=== PATIENT | female | born 1985 | race Caucasian/White ===

== ENCOUNTER 2016-03-15 00:45 | Emergency (ER) | payer OTHER ==
[2016-01-05 22:29] VITALS: BP 110/66
[~2016-03-15 00:45] MED LIST: CYCL10TA2 PO; HYDR-971 PO; SULF1TAB24 PO
[2016-03-15] MEDS ORDERED: D-ME118S2 PO (15:13)
[2016-03-15] MEDS ORDERED: PROAIR HFA8.5 GM INH (15:13)
[2016-03-15] MEDS ORDERED: AZIT250T PO (15:13)
== END 2016-03-15 00:50 | disposition left against medical advice (07) ==
LOC: ER 00:45
DX: R05 Cough (principal); M54.89 Other dorsalgia

== ENCOUNTER 2016-03-15 14:02 | Emergency (ER) | payer OTHER ==
[~2016-03-15] VITALS: Ht 157.5 cm; Wt 99.8 kg
[2016-03-15 14:45] VITALS: BP 113/73
[2016-03-15] MEDS ORDERED: AZIT250T PO (15:13)
[2016-03-15] MEDS ORDERED: D-ME118S2 PO (15:13)
[2016-03-15] MEDS ORDERED: PROAIR HFA8.5 GM INH (15:13)
--- NOTE | 2016-03-15 15:13 | PHYS DOC ---
Past Medical History Past Medical History: Asthma Past Surgical History: Alcohol Use: Occasionally Drug Use: None Adult General Chief Complaint Chief Complaint: COUGH HPI HPI Patient is a 30 year old female presents emergency room with complaint of nonproductive, harsh, hacking cough for approximately one and half weeks. Patient has seen her primary care doctor within the past week and was prescribed steroids. She states that steroids "had some effect" but did not resolve completely. Patient is a smoker. She denies antibiotic use, foreign travel or hospitalization within the last 90 days. Review of Systems Review of Systems Constitutional: Denies fever or chills [] Eyes: Denies change in visual acuity, redness, or eye pain [] HENT: Denies nasal congestion or sore throat [] Respiratory: Reports dry, hacking cough. Denies shortness of breath. Denies post tussive emesis. Cardiovascular: No additional information not addressed in HPI [] GI: Denies abdominal pain, nausea, vomiting, bloody stools or diarrhea [] : Denies dysuria or hematuria [] Musculoskeletal: Denies back pain or joint pain [] Integument: Denies rash or skin lesions [] Neurologic: Denies headache, focal weakness or sensory changes [] Endocrine: Denies polyuria or polydipsia [] Allergies Allergies Allergies Coded Allergies Type Severity Reaction Last Updated Verified No Known Drug Allergies 08/24/13 No Physical Exam Physical Exam Constitutional: Well developed, well nourished, no acute distress, non-toxic appearance. [] HENT: Normocephalic, atraumatic, bilateral external ears normal, oropharynx moist, no oral exudates, nose normal. [] Eyes: PERRLA, EOMI, conjunctiva normal, no discharge. [] Neck: Normal range of motion, no tenderness, supple, no stridor. [] Cardiovascular:Heart rate regular rhythm, no murmur [] Lungs & Thorax: There is no evidence respiratory distress respiratory fatigue. Patient has mild central coarse wheezing the resonates bilaterally. Peripheral lung sounds are clear. Abdomen: Bowel sounds normal, soft, no tenderness, no masses, no pulsatile masses. [] Skin: Warm, dry, no erythema, no rash. [] Back: No tenderness, no CVA tenderness. [] Extremities: No tenderness, no cyanosis, no clubbing, ROM intact, no edema. [] Neurologic: Alert and oriented X 3, normal motor function, normal sensory function, no focal deficits noted. [] Psychologic: Affect normal, judgement normal, mood normal. [] Current Patient Data Vital Signs Vital Signs Date Time Temp Pulse Resp B/P Pulse Ox O2 Delivery O2 Flow Rate FiO2 03/15/16 14:45 97.7 76 18 97 Room Air 97.7 EKG EKG [] Radiology/Procedures Radiology/Procedures [] Course & Med Decision Making Course & Med Decision Making Pertinent Labs and Imaging studies reviewed. (See chart for details) [] Dragon Disclaimer Dragon Disclaimer This electronic medical record was generated, in whole or in part, using a voice recognition dictation system. Departure Departure Impression: Primary Impression: Bronchitis Disposition: HOME, SELF-CARE Condition: GOOD Referrals: UNKNOWN PCP NAME (PCP) Patient Instructions: Acute Bronchitis, [id number], Smoking Cessation, Tips For Success, Smoking, You Can Quit, [id number] Additional Instructions: 1. Take the medication as prescribed. 2. Review discharge instructions; especially for reasons to return to the emergency department. 3. Call your primary care doctor's office in the morning to schedule follow-up appointment. Scripts D-Methorphan Hb/Prometh Hcl (Promethazine-Dm Syrup)118 Ml Syrup5 Ml PO PRN Q6HRS COUGH #120 ML Prov:ANGELY HARTMAN 03/15/16 Albuterol Sulfate (Proair Hfa Inhaler)8.5 Gm Hfa.aer.ad1 Puff INH PRN Q6HRS PRN SHORTNESS OF BREATH #1 INHALER Ref 0 Prov:ANGELY HARTMAN 03/15/16 Azithromycin (Zithromax)250 Mg Tablet1 Pkg PO UD #6 TAB Prov:ANGELY HARTMAN 03/15/16 ANGELY HARTMAN Mar 15, 2016 15:13
== END 2016-03-15 15:20 | disposition home or self-care (01) ==
LOC: ER 14:02
DX: J40 Bronchitis, not specified as acute or chronic (principal); J45.909 Unspecified asthma, uncomplicated; F17.200 Nicotine dependence, unspecified, uncomplicated
CPT/HCPCS: 99283

== ENCOUNTER 2016-07-03 23:26 | Inpatient (IN) | payer OTHER ==
[~2016-07-03] VITALS: Ht 157.5 cm; Wt 101.2 kg
[~2016-07-03 23:26] MED LIST changes: +AZIT250T PO; +D-ME118S2 PO; +PROAIR HFA8.5 GM INH
[2016-07-04] VITALS (9 sets, daily range): BP systolic 94–124; BP diastolic 48–80
--- NOTE | 2016-07-04 00:12 | PHYS DOC ---
Past Medical History Past Medical History: Asthma Past Surgical History: Alcohol Use: Occasionally Drug Use: None Adult General Chief Complaint Chief Complaint: ABDOMINAL PAIN HPI HPI Patient is a 30 year old female who presents with complaint of abdominal pain. Patient states that her symptoms started yesterday in which she was seen here last night. Patient states she has slept all day and has progressively increase. Patient states that her pain is in her upper abdomen. Patient states she has radiation of pain into her back. Patient denies vomiting today states she vomited here in the emergency department yesterday. Patient denies any fever or diarrhea. Patient has not had history of similar symptoms. The patient states that she does have history of heartburn. Patient states her pain is severe. Review of Systems Review of Systems Constitutional: Denies fever or chills [] Eyes: Denies change in visual acuity, redness, or eye pain [] HENT: Denies nasal congestion or sore throat [] Respiratory: Denies cough or shortness of breath [] Cardiovascular: No additional information not addressed in HPI [] GI: abdominal pain, denies nausea, vomiting, bloody stools or diarrhea [] : Denies dysuria or hematuria [] Musculoskeletal: Denies back pain or joint pain [] Integument: Denies rash or skin lesions [] Neurologic: Denies headache, focal weakness or sensory changes [] Current Medications Current Medications Current Medications Medications (Trade) Dose Ordered Sig/Kam Start Time Stop Time Status Last Admin Dose Admin Multi-Ingredient Mouthwash/Gargle (Gi Cocktail Single Dose) 15 ml 1X ONCE 07/04/16 01:00 07/04/16 01:01 Allergies Allergies Allergies Coded Allergies Type Severity Reaction Last Updated Verified No Known Drug Allergies 08/24/13 No Physical Exam Physical Exam Constitutional: Well developed, well nourished, no acute distress, non-toxic appearance. [] HENT: Normocephalic, atraumatic, bilateral external ears normal, oropharynx moist, no oral exudates, nose normal. [] Eyes: PERRLA, EOMI, conjunctiva normal, no discharge. [] Neck: Normal range of motion, no tenderness, supple, no stridor. [] Cardiovascular:Heart rate regular rhythm, no murmur [] Lungs & Thorax: Bilateral breath sounds clear to auscultation [] Abdomen: Bowel sounds hypoactive, soft, no tenderness, no masses, no pulsatile masses. [] Skin: Warm, dry, no erythema, no rash. [] Back: No tenderness, right CVA tenderness. [] Extremities: No tenderness, no cyanosis, no clubbing, ROM intact, no edema. [] Neurologic: Alert and oriented X 3, normal motor function, normal sensory function, no focal deficits noted. [] Psychologic: Affect normal, judgement normal, mood normal. [] Current Patient Data Vital Signs Vital Signs Date Time Temp Pulse Resp B/P Pulse Ox O2 Delivery O2 Flow Rate FiO2 07/03/16 23:31 97.9 66 18 123/84 99 Room Air 97.9 Lab Values Laboratory Tests Test 07/04/16 00:01 Urine Collection Type Unknown Urine Color Yellow Urine Clarity Clear Urine pH 7.0 Urine Specific [place] 1.025 Urine Protein Negativemg/dL (NEG-TRACE) Urine Glucose (UA) Negativemg/dL (NEG) Urine Ketones (Stick) Negativemg/dL (NEG) Urine Blood Negative (NEG) Urine Nitrite Negative (NEG) Urine Bilirubin Negative (NEG) Urine Urobilinogen Dipstick 0.2mg/dL (0.2 mg/dL) Urine Leukocyte Esterase Negative (NEG) Urine RBC 0/HPF (0-2) Urine WBC 0/HPF (0-4) Urine Squamous Epithelial Cells Few/LPF Urine Amorphous Sediment Present/HPF Urine Bacteria 0/HPF (0-FEW) Urine Mucus Mod/LPF Urine Test Negative (NEG) EKG EKG [] Radiology/Procedures Radiology/Procedures [[facility] [address] [place] [address] IMAGING REPORT Signed PATIENT: NAVIN ANTON ACCOUNT: [id number] : 1985 LOCATION: ER AGE: 30 SEX: F EXAM STATUS: REG ER ORD. PHYSICIAN: JAILYN PARRA APRN REASON: upper abdominal pain with radiation of pain to the back PROCEDURE: CT ABDOMEN PELVIS WO CONTRAST PROCEDURE CT abdomen and pelvis without contrast 07/04/2016. HISTORY Upper abdominal pain radiating to the back since yesterday. TECHNIQUE Noncontrast images were performed. Sagittal and coronal reconstructions were obtained. Exposure: One or more of the following individualized dose reduction techniques were utilized for this exam: 1. Automated exposure control. 2. Adjustment of the mA and/or kV according to patient size. 3. Use of iterative reconstruction technique. COMPARISON FINDINGS The lung bases are clear. The liver and spleen are homogeneous in density and normal in configuration. Evaluation of the solid organs is limited without intravenous contrast. Calcifications are visible in the gallbladder. There is no obvious gallbladder wall thickening or surrounding inflammation. The kidneys have no apparent mass, calcification or obstruction. The adrenal glands are not enlarged. No pancreatic abnormality is seen. There is no apparent adenopathy. No soft tissue mass or other inflammatory process is evident. A normal appendix is shown inferior to the cecum. Images through the pelvis show no apparent distal ureteral stone or obstruction. The bladder was not well distended, but appears normal. No pelvic or inguinal adenopathy is seen. The uterus and adnexal areas appear normal for age. There is no separate pelvic mass or inflammatory process. IMPRESSION Cholelithiasis. No other abnormality is seen. Electronically signed by: Javier Alonzo (Jul 04, 2016 00:45:50) DICTATED and SIGNED BY: JAVIER ALONZO Jr, MD DATE: 07/04/16 0045 CC: JAILYN PARRA APRN; CHASE ARROYO MD ~ ] Course & Med Decision Making Course & Med Decision Making Pertinent Labs and Imaging studies reviewed. (See chart for details) CT scan shows cholelithiasis. Patient continues to have abdominal pain. We'll talk with the hospitalist regards to admission. Labs pending at this time. [address] Slaughter in regard to admission. Order completed. [] Dragon Disclaimer Dragon Disclaimer This electronic medical record was generated, in whole or in part, using a voice recognition dictation system. Departure Departure Impression: Primary Impression: Cholelithiasis Disposition: ADMITTED INPATIENT Admitting Physician: Kayla Slaughter Condition: STABLE Referrals: CHASE ARROYO MD (PCP) JAILYN PARRA APRN Jul 04, 2016 00:12
[2016-07-04 00:22] LABS: NEG OBC UR NEG; POS OBC UR POS
[2016-07-04 00:28] LABS: BACTERIA,URINE 0 /HPF (0-FEW); BILIRUBIN,URINE NEGATIVE (NEG); GLUCOSE,URINE NEGATIVE (NEG); NITRITE,URINE NEGATIVE (NEG); PROTEIN,URINE NEGATIVE (NEG-TRACE); RBC,URINE 0 /HPF (0-2); UROBILINOGEN,URINE 0.2 mg/dL (0.2 mg/dL); WBC,URINE 0 /HPF (0-4)
[2016-07-04 00:29] LABS: SQUAMOUS EPITHELIAL CELL,UR FEW /LPF
--- NOTE | 2016-07-04 00:47 | RAD ---
PROCEDURE CT abdomen and pelvis without contrast 07/04/2016. HISTORY Upper abdominal pain radiating to the back since yesterday. TECHNIQUE Noncontrast images were performed. Sagittal and coronal reconstructions were obtained. Exposure: One or more of the following individualized dose reduction techniques were utilized for this exam: 1. Automated exposure control. 2. Adjustment of the mA and/or kV according to patient size. 3. Use of iterative reconstruction technique. COMPARISON FINDINGS The lung bases are clear. The liver and spleen are homogeneous in density and normal in configuration. Evaluation of the solid organs is limited without intravenous contrast. Calcifications are visible in the gallbladder. There is no obvious gallbladder wall thickening or surrounding inflammation. The kidneys have no apparent mass, calcification or obstruction. The adrenal glands are not enlarged. No pancreatic abnormality is seen. There is no apparent adenopathy. No soft tissue mass or other inflammatory process is evident. A normal appendix is shown inferior to the cecum. Images through the pelvis show no apparent distal ureteral stone or obstruction. The bladder was not well distended, but appears normal. No pelvic or inguinal adenopathy is seen. The uterus and adnexal areas appear normal for age. There is no separate pelvic mass or inflammatory process. IMPRESSION Cholelithiasis. No other abnormality is seen. Electronically signed by: Ricky Alonzo (Jul 04, 2016 00:45:50)
[2016-07-04] MEDS ORDERED: LIDO:MAALOX:DONNATAL 1:1:1 15 ML SINGLE DOSE SWSW ONE (01:00)
[2016-07-04] MEDS ORDERED: ONDANSETRON PF 4 MG/2 ML VIAL. IV PRN ×2 (01:00→10:15)
[2016-07-04] MEDS ORDERED: PANTOPRAZOLE IV PUSH 40 MG VIAL. IVP ONE (01:15)
[2016-07-04 01:23] LABS: BASO # 0.2 x10^3/uL (0.0-0.2); BASO % 1 % (0-3); EOS % 4 % (0-3); HEMATOCRIT 39.6 % (36.0-47.0); HEMOGLOBIN 13.3 g/dL (12.0-15.5); LYMPH # 3.4 x10^3/uL (1.0-4.8); LYMPH % 26 % (24-48); MEAN CORPUSCULAR HEMOGLOBIN 32 pg (25-35); MEAN CORPUSCULAR HGB CONC 34 g/dL (31-37); MEAN CORPUSCULAR VOLUME 96 fL (79-100); MONO % 6 % (0-9); NEUT % 63 % (31-73); PLATELET COUNT 326 x10^3/uL (140-400); RED BLOOD COUNT 4.14 x10^6/uL (3.50-5.40); RED CELL DISTRIBUTION WIDTH 13.8 % (11.5-14.5); WHITE BLOOD COUNT 13.2 x10^3/uL (4.0-11.0)
[2016-07-04 01:38] LABS: ALBUMIN 3.6 g/dL (3.4-5.0); CALCIUM 9.1 mg/dL (8.5-10.1); TOTAL PROTEIN 7.3 g/dL (6.4-8.2)
[2016-07-04 01:39] LABS: CREATININE 0.9 mg/dL (0.6-1.0); GFR 74.6; POTASSIUM 4.2 mmol/L (3.5-5.1); TOTAL BILIRUBIN 0.3 mg/dL (0.2-1.0)
[2016-07-04] MEDS: FENTANYL PF 100 MCG/2 ML VIAL. IV PRN ×6 (01:40→23:55)
[2016-07-04] MEDS: IV NORMAL SALINE 1000ML BAG 1,000 ML IV SCH ×3 (01:40→18:17)
[2016-07-04] MEDS ORDERED: TRAM50TA PO (03:58)
--- NOTE | 2016-07-04 09:14 | ACF ---
Admit Criteria Forms Admit Criteria Forms Admit Criteria Forms GALLBLADDER OR BILE DUCT INFLAMMATION OR STONE Clinical Indications for Admission to Inpatient Care ( Place 'X' for any and all applicable criteria): Admission is indicated for patients with ANY ONE of the following(1)(2)(3)(4)(5) : [ ]I. Acute cholecystitis as indicated by ALL of the following: [ ]a) Right upper quadrant pain, mass, or tenderness [ ]b) Systemic signs of inflammation indicated by ANY ONE of the following: [ ]i) Fever [ ]ii) C-reactive protein level greater than 10 mg/L (95 nmol/L) [ ]iii) White blood cell count greater than 10,000/mm3 (10 x109/L) or less than 4000/mm3 (4 x109/L) [X]II. Inpatient admission required rather than observation care (Also use Gallbladder or Bile Duct Inflammation or Stone: Observation Care as appropriate) because of ANY ONE of the following: [ ]a) Common bile duct obstruction diagnosed [ ]b) Vomiting that is severe or persistent [X]c) Severe pain requiring acute inpatient management [ ]d) Signs of intestinal obstruction or peritonitis [A] [ ]e) Severe electrolyte abnormalities requiring inpatient care [ ]f) Absent bowel sounds with complete ileus(8) [ ]g) Hemodynamic instability [ ]h) High fever or infection requiring inpatient admission as indicated by ANY ONE of the following (9): [ ]1) Appropriate outpatient or observation care antimicrobial Treatment. unavailable, not effective, or not feasible [ ]2) Temperature greater than 104.9 degrees F (40.5 degrees C) (oral) [ ]3) Temperature greater than 103.1 degrees F (39.5 degrees C) (oral) or less than 96.8 degrees F (36 degrees C) (rectal) that does not respond to all emergency treatment measures [ ]4) Documented bacteremia [ ]i) IV fluid to replace significant ongoing losses (greater than 3 L/m2 per day) [ ]j) Percutaneous or open drainage (eg, abscess, biliary tract) procedures [ ]k) Immediate inpatient surgery [ ]l) Other condition, treatment or monitoring requiring inpatient admission [ ]III. Acute cholangitis as indicated by ALL of the following(9)(10): [ ]a) Systemic signs of inflammation indicated by ANY ONE of the following: [ ]i) Fever [ ]ii) C-reactive protein level greater than 10 mg/L (95 nmol /L) [ ]iii) White blood cell count greater than 10,000/mm3 (10 x109/L) or less than 4000/mm3 (4 x109/L) [ ]b) Evidence of common bile duct disease indicated by ANY ONE of the following: [ ]i) Total serum bilirubin level greater than or equal to 2 mg/dL (34 micromoles/L) [ ]ii) Liver function test (alkaline phosphatase (ALP), r- glutamyltransferase (GGT), aspartate aminotransferase (AST), or alanine aminotransferase (ALT)) greater than 1.5 times the upper limit of normal[B] [ ]iii) Hepatobiliary imaging showing biliary dilatation or evidence of etiology (eg, stricture, stone, previously placed stent) Extended stay beyond goal length of stay may be needed for (1)(2)): [ ]a) Bacteremia or Hemodynamic instability [ ]b) Cholecystectomy [ ]c) Other surgical procedure(24) [ ]d) Percutaneous or endoscopic ultrasound-guided cholecystostomy The original [facility] content created by [facility] has been revised. The portions of the content which have been revised are identified through the use of italic text or in bold, and [facility] has neither reviewed nor approved the modified material. All other unmodified content is copyright [facility] [employer]. Please see references footnoted in the original [facility] [employer] edition 2016 YEMI VALENCIA Jul 04, 2016 09:14
--- NOTE | 2016-07-04 09:41 | PDOC2 ---
DIANE ARIAS FAMILY NURSE PRACTITIONER 07/04/16 0941: CONSULT Date of Consult Date of Consult DATE: 07/04/16 TIME: 09:37 Reason for Consult Reason for Consult: abdominal pain Referring Physician Referring Physician: ER Identification/Chief Complaint Chief Complaint abdominal pain Source Source: Chart review, Patient History of Present Illness Reason for Visit: RUQ pain with radiation to her back for 2 days. She reports it is constant and no aggravating or alleviating factors. Associated nausea and emesis. No constipation or diarrhea. She had similar symptoms earlier in the week, resolved and then returned worse. Past Medical History Pulmonary: Asthma Past Surgical History Past Surgical History: (x2) Family History Family History: Other (noncontributory to current illness) Social History <1 pack per day ALCOHOL: occassional Drugs: None Lives: with Family Current Problem List Problem List Problems Medical Problems: (1) Cholelithiasis Status: Acute Current Medications Current Medications Current Medications Multi-Ingredient Mouthwash/Gargle (Gi Cocktail Single Dose) 15 ml 1X ONCE SWSW ; Start 07/04/16 at 01:00; Stop 07/04/16 at 01:00; Status DC Ondansetron HCl (Zofran) 4 mg PRN Q8HRS PRN IV NAUSEA/VOMITING Last administered on 07/04/16 01:39; Start 07/04/16 at 01:00; Stop 07/05/16 at 00:59 Fentanyl Citrate 50 mcg 50 mcg PRN Q2HR PRN IV SEVERE PAIN Last administered on 07/04/16 01:40; Start 07/04/16 at 01:00; Stop 07/05/16 at 00:59 Sodium Chloride (Iv Sodium Chloride 0.9% 1000ml Bag) 1,000 ml @ 125 mls/hr Q8H IV Last administered on 07/04/16 09:34; Start 07/04/16 at 01:00; Stop at 00:59 Pantoprazole Sodium 40 mg 40 mg 1X ONCE IVP Last administered on 07/04/16 01: 40; Start 07/04/16 at 01:15; Stop 07/04/16 at 01:16; Status DC Cefazolin Sodium/ Dextrose (Ancef 2gm Premix) 50 ml @ 100 mls/hr 1X PREOP PRN IV english as a second language instructor to or; Start 07/04/16 at 09:45; Stop 07/05/16 at 18:00; Status UNV Active Scripts Active Proair Hfa Inhaler (Albuterol Sulfate) 8.5 Gm Hfa.aer.ad 1 Puff INH PRN Q6HRS PRN [place] 5-325 Tablet (Acetaminophen/Hydrocodone Bitart) 1 Each Tablet 1-2 Tab PO Q4-6HRS Reported Tramadol Hcl 50 Mg Tablet 50 Mg PO Q6H PRN Allergies Allergies: Coded Allergies: No Known Drug Allergies (Unverified , 08/24/13) ROS General: YES: Chills, No: Other (fevers) PSYCHOLOGICAL ROS: No: Anxiety, Depression Eyes: No Blurry vision, No Double vision HEENT: No: Heacaches, Sore Throat Hematological and Lymphatic: No: Bleeding Problems, Blood Clots Respiratory: YES: Shortness of breath (due to abdominal pain), No: Cough Cardiovascular: No Chest Pain, No Palpitations Gastrointestinal: Yes Other (see hpi) Genitourinary: No Dysuria, No Hematuria Musculoskeletal: No Joint Pain, No Muscle Pain Neurological: No Confusion, No Numbness/Tingling Skin: No Pruritus, No Rash Physical Exam General: Alert, Oriented X3, Cooperative, No acute distress HEENT: PERRLA, Mucous membr. moist/pink Lungs: Clear to auscultation, Normal air movement Heart: Regular rate, Normal S1, Normal S2, No murmurs Abdomen: Soft, Other (obese abdomen, RUQ TTP, mild epigastric ttp, pelvic scar from csection ) Extremities: No clubbing, No cyanosis Skin: No rashes, No breakdown, Other (noted mulitple tattoos) Neuro: Normal speech, Sensation intact Psych/Mental Status: Mental status NL, Mood NL MUSCULOSKELETAL: No deformity, No swelling Vitals VITALS Vital Signs Date Time Temp Pulse Resp B/P Pulse Ox O2 Delivery O2 Flow Rate FiO2 07/04/16 07:00 98.2 81 20 94/52 98 Room Air 98.2 Labs Labs Laboratory Tests Test 07/04/16 00:01 07/04/16 01:15 Urine Collection Type Unknown Urine Color Yellow Urine Clarity Clear Urine pH 7.0 Urine Specific [place] 1.025 Urine Protein Negativemg/dL (NEG-TRACE) Urine Glucose (UA) Negativemg/dL (NEG) Urine Ketones (Stick) Negativemg/dL (NEG) Urine Blood Negative (NEG) Urine Nitrite Negative (NEG) Urine Bilirubin Negative (NEG) Urine Urobilinogen Dipstick 0.2mg/dL (0.2 mg/dL) Urine Leukocyte Esterase Negative (NEG) Urine RBC 0/HPF (0-2) Urine WBC 0/HPF (0-4) Urine Squamous Epithelial Cells Few/LPF Urine Amorphous Sediment Present/HPF Urine Bacteria 0/HPF (0-FEW) Urine Mucus Mod/LPF Urine Test Negative (NEG) White Blood Count 13.2x10^3/uL (4.0-11.0) Red Blood Count 4.14x10^6/uL (3.50-5.40) Hemoglobin 13.3g/dL (12.0-15.5) Hematocrit 39.6% (36.0-47.0) Mean Corpuscular Volume 96fL (79-100) Mean Corpuscular Hemoglobin 32pg (25-35) Mean Corpuscular Hemoglobin Concent 34g/dL (31-37) Red Cell Distribution Width 13.8% (11.5-14.5) Platelet Count 326x10^3/uL (140-400) Neutrophils (%) (Auto) 63% (31-73) Lymphocytes (%) (Auto) 26% (24-48) Monocytes (%) (Auto) 6% (0-9) Eosinophils (%) (Auto) 4% (0-3) Basophils (%) (Auto) 1% (0-3) Neutrophils # (Auto) 8.2x10^3uL (1.8-7.7) Lymphocytes # (Auto) 3.4x10^3/uL (1.0-4.8) Monocytes # (Auto) 0.8x10^3/uL (0.0-1.1) Eosinophils # (Auto) 0.5x10^3/uL (0.0-0.7) Basophils # (Auto) 0.2x10^3/uL (0.0-0.2) Sodium Level 140mmol/L (136-145) Potassium Level 4.2mmol/L (3.5-5.1) Chloride Level 103mmol/L (98-107) Carbon Dioxide Level 27mmol/L (21-32) Anion Gap 10 (6-14) Blood Urea Nitrogen 14mg/dL (7-20) Creatinine 0.9mg/dL (0.6-1.0) Estimated GFR (Cockcroft-Gault) 74.6 BUN/Creatinine Ratio 16 (6-20) Glucose Level 82mg/dL (70-99) Calcium Level 9.1mg/dL (8.5-10.1) Total Bilirubin 0.3mg/dL (0.2-1.0) Aspartate Amino Transf (AST/SGOT) 23U/L (15-37) Alanine Aminotransferase (ALT/SGPT) 35U/L (14-59) Alkaline Phosphatase 59U/L (46-116) Total Protein 7.3g/dL (6.4-8.2) Albumin 3.6g/dL (3.4-5.0) Albumin/Globulin Ratio 1.0 (1.0-1.7) Laboratory Tests Test 07/04/16 00:01 07/04/16 01:15 Urine Collection Type Unknown Urine Color Yellow Urine Clarity Clear Urine pH 7.0 Urine Specific [place] 1.025 Urine Protein Negativemg/dL (NEG-TRACE) Urine Glucose (UA) Negativemg/dL (NEG) Urine Ketones (Stick) Negativemg/dL (NEG) Urine Blood Negative (NEG) Urine Nitrite Negative (NEG) Urine Bilirubin Negative (NEG) Urine Urobilinogen Dipstick 0.2mg/dL (0.2 mg/dL) Urine Leukocyte Esterase Negative (NEG) Urine RBC 0/HPF (0-2) Urine WBC 0/HPF (0-4) Urine Squamous Epithelial Cells Few/LPF Urine Amorphous Sediment Present/HPF Urine Bacteria 0/HPF (0-FEW) Urine Mucus Mod/LPF Urine Test Negative (NEG) White Blood Count 13.2x10^3/uL (4.0-11.0) Red Blood Count 4.14x10^6/uL (3.50-5.40) Hemoglobin 13.3g/dL (12.0-15.5) Hematocrit 39.6% (36.0-47.0) Mean Corpuscular Volume 96fL (79-100) Mean Corpuscular Hemoglobin 32pg (25-35) Mean Corpuscular Hemoglobin Concent 34g/dL (31-37) Red Cell Distribution Width 13.8% (11.5-14.5) Platelet Count 326x10^3/uL (140-400) Neutrophils (%) (Auto) 63% (31-73) Lymphocytes (%) (Auto) 26% (24-48) Monocytes (%) (Auto) 6% (0-9) Eosinophils (%) (Auto) 4% (0-3) Basophils (%) (Auto) 1% (0-3) Neutrophils # (Auto) 8.2x10^3uL (1.8-7.7) Lymphocytes # (Auto) 3.4x10^3/uL (1.0-4.8) Monocytes # (Auto) 0.8x10^3/uL (0.0-1.1) Eosinophils # (Auto) 0.5x10^3/uL (0.0-0.7) Basophils # (Auto) 0.2x10^3/uL (0.0-0.2) Sodium Level 140mmol/L (136-145) Potassium Level 4.2mmol/L (3.5-5.1) Chloride Level 103mmol/L (98-107) Carbon Dioxide Level 27mmol/L (21-32) Anion Gap 10 (6-14) Blood Urea Nitrogen 14mg/dL (7-20) Creatinine 0.9mg/dL (0.6-1.0) Estimated GFR (Cockcroft-Gault) 74.6 BUN/Creatinine Ratio 16 (6-20) Glucose Level 82mg/dL (70-99) Calcium Level 9.1mg/dL (8.5-10.1) Total Bilirubin 0.3mg/dL (0.2-1.0) Aspartate Amino Transf (AST/SGOT) 23U/L (15-37) Alanine Aminotransferase (ALT/SGPT) 35U/L (14-59) Alkaline Phosphatase 59U/L (46-116) Total Protein 7.3g/dL (6.4-8.2) Albumin 3.6g/dL (3.4-5.0) Albumin/Globulin Ratio 1.0 (1.0-1.7) Assessment/Plan Assessment/Plan symptomatic cholelithiasis, possible cholecystitis leukocytosis normal LFTS plan lap bhupinder today ELIAS FLOREZ MD 07/04/16 1027: CONSULT Allergies Allergies: Coded Allergies: No Known Drug Allergies (Unverified , 08/24/13) Assessment/Plan Assessment/Plan Pt seen and examined by myself; 30 year old female with upper abdominal pain, RUQ with some radiation to LUQ, sharp in nature. Remaining HPI/ROS/SH/PMH as above, reviewed; exam: alert, oriented, no scleral icterus, multiple tattoos, no neck masses, lungs clear, heart RR and R, abdomen obese, with tenderness RUQ , no guarding or peritoneal signs, ext neg for edema or deformity; CT showing gallstones, no other abnormality; labs reviewed; suspect calculous cholecystitis. I reviewed surgical treatment with the patient and the details. The risks were discussed; the discussion was interrupted several times by cell phone calls. She understands and would like to proceed. DIANE ARIAS APRN Jul 04, 2016 09:41 ELIAS FLOREZ MD Jul 04, 2016 10:27
[2016-07-04] MEDS ORDERED: ROCURONIUM 50 MG/5 ML VIAL. ONE (09:54)
[2016-07-04] MEDS ORDERED: ONDANSETRON PF 4 MG/2 ML VIAL. ONE (09:54)
[2016-07-04] MEDS ORDERED: FENTANYL PF 100 MCG/2 ML VIAL. ONE (09:54)
[2016-07-04] MEDS ORDERED: PROPOFOL 20 ML IV ONE (09:54)
[2016-07-04] MEDS ORDERED: LIDOCAINE 2% 100 MG/5 ML SYRINGE. ONE (09:54)
[2016-07-04] MEDS ORDERED: DESFLURANE 61 TO 120 MINUTES IH ONE (09:54)
[2016-07-04] MEDS ORDERED: MIDAZOLAM HCL/PF 2 MG/2 ML VIAL. ONE (09:54)
[2016-07-04] MEDS ORDERED: DEXAMETHASONE SOD PHOS 20 MG/5 ML VIAL. ONE (09:54)
[2016-07-04] MEDS ORDERED: KETOROLAC 30 MG/ML INJ FOR OR. INJ ONE (09:54)
[2016-07-04] MEDS ORDERED: IV RINGERS,LACTATED 1000ML 1,000 ML IV SCH (10:05)
[2016-07-04] MEDS ORDERED: LIDOCAINE 1% 1 ML SYRINGE. ID PRN (10:15)
[2016-07-04] MEDS ORDERED: MORPHINE SULFATE 2 MG/ML DISP.SYRIN. IV PRN (10:15)
[2016-07-04] MEDS ORDERED: PROCHLORPERAZINE 10 MG/2 ML VIAL. IV PRN (10:15)
[2016-07-04] MEDS ORDERED: HYDROmorphone 2 MG/ML VIAL IV PRN (10:15)
[2016-07-04] MEDS ORDERED: FENTANYL PF 100 MCG/2 ML VIAL. IV PRN ×2 (10:15)
[2016-07-04] MEDS ORDERED: IOHEXOL 300 MG/ML 50 ML VIAL. ONE (10:28)
[2016-07-04] MEDS ORDERED: BUPIVAC MPF-EPI 0.5%-1:200000 30 ML VIAL. ONE (10:28)
[2016-07-04] MEDS ORDERED: SURGICEL HEMOSTAT 4X8 EACH. ONE (10:28)
[2016-07-04] MEDS ORDERED: ceFAZolin 2GM PREMIX 2 GM/50 ML BAG IV ONE (10:30)
--- NOTE | 2016-07-04 10:45 | PDOC1 ---
History and Physical Past Medical History Pulmonary: Asthma Past Surgical History Past Surgical History: (x2) Family History Family History: Other (noncontributory to current illness) Social History Smoke: <1 pack per day ALCOHOL: occassional Drugs: None Current Problem List Problem List Problems Medical Problems: (1) Cholelithiasis Status: Acute Current Medications Current Medications Current Medications Medications (Trade) Dose Ordered Sig/Kam Start Time Stop Time Status Last Admin Dose Admin Bupivacaine HCl/ Epinephrine Bitart (Sensorcain-Mpf Epi 0.5%-[id number]) 30 ml STK-MED ONCE 07/04/16 10:28 07/04/16 10:29 DC Cefazolin Sodium/ Dextrose (Ancef 2gm Premix) 50 ml @ 100 mls/hr 1X PREOP PRN 07/04/16 09:45 07/05/16 18:00 Cellulose 1 each STK-MED ONCE 07/04/16 10:28 07/04/16 10:29 DC Desflurane (Suprane) 60 ml STK-MED ONCE 07/04/16 09:54 07/04/16 09:55 DC Dexamethasone Sodium Phosphate (Decadron) 20 mg STK-MED ONCE 07/04/16 09:54 07/04/16 09:55 DC Fentanyl Citrate (Fentanyl 2ml Vial) 50 mcg PRN Q5MIN PRN 07/04/16 10:15 07/05/16 10:14 Fentanyl Citrate 50 mcg 50 mcg PRN Q2HR PRN 07/04/16 01:00 07/05/16 00:59 07/04/16 01:40 50 MCG Hydromorphone HCl (Dilaudid) 0.5 mg PRN Q10MIN PRN 07/04/16 10:15 07/05/16 10:14 Iohexol (Omnipaque 300 Mg/ml) 50 ml STK-MED ONCE 07/04/16 10:28 07/04/16 10:29 DC Ketorolac Tromethamine (Toradol For Or Only) 30 mg STK-MED ONCE 07/04/16 09:54 07/04/16 09:55 DC Lactated Ringer's (Iv Lactated Ringers) 1,000 ml @ 0 mls/hr Q0M 07/04/16 10:05 07/04/16 22:04 Lidocaine HCl 2 ml PRN 1X PRN 07/04/16 10:15 07/04/16 10:37 DC Lidocaine HCl (Lidocaine HCl 2% Abboject) 100 mg STK-MED ONCE 07/04/16 09:54 07/04/16 09:55 DC Midazolam HCl (Versed) 2 mg STK-MED ONCE 07/04/16 09:54 07/04/16 09:55 DC Morphine Sulfate 1 mg 1 mg PRN Q10MIN PRN 07/04/16 10:15 07/05/16 10:14 Multi-Ingredient Mouthwash/Gargle (Gi Cocktail Single Dose) 15 ml 1X ONCE 07/04/16 01:00 07/04/16 01:00 DC Ondansetron HCl (Zofran) 4 mg PRN Q6HRS PRN 07/04/16 10:15 07/05/16 10:14 Ondansetron HCl 4 mg 4 mg STK-MED ONCE 07/04/16 09:54 07/04/16 09:55 DC Pantoprazole Sodium 40 mg 40 mg 1X ONCE 07/04/16 01:15 07/04/16 01:16 DC 07/04/16 01:40 40 MG Prochlorperazine Edisylate (Compazine) 5 mg PACU PRN PRN 07/04/16 10:15 07/05/16 10:14 Propofol (Diprivan) 20 ml @ As Directed STK-MED ONCE 07/04/16 09:54 07/04/16 09:55 DC Rocuronium [place] (Zemuron) 50 mg STK-MED ONCE 07/04/16 09:54 07/04/16 09:55 DC Sodium Chloride (Iv Sodium Chloride 0.9% 1000ml Bag) 1,000 ml @ 125 mls/hr Q8H 07/04/16 01:00 07/05/16 00:59 07/04/16 09:34 125 MLS/HR Allergies Allergies Allergies Coded Allergies Type Severity Reaction Last Updated Verified No Known Drug Allergies 08/24/13 No ROS Review of System CONSTITUTIONAL: No fever or chills EYES: No recent changes SKIN: No rash or itching CARDIOVASCULAR: No chest pain, syncope, palpitations, or edema RESPIRATORY: No SOB or cough GASTROINTESTINAL: abdominal pain NEUROLOGICAL: No headaches or weakness ENDOCRINE: No cold or heat intolerance GENITOURINARY: No urgency or frequency of urination MUSCULOSKELETAL: No back pain or joint pain LYMPHATICS: No enlarged lymph nodes PSYCHIATRIC: No anxiety or depression Physical Exam Physical Exam GEN.: No apparent distress. Alert and oriented. HEENT: Head is normocephalic, atraumatic NECK: Supple. no jvd LUNGS: Clear to auscultation. HEART: RRR, S1, S2 present. Peripheral pulses intact ABDOMEN: Soft, ruq tender. Positive bowel sounds. EXTREMITIES: Without any cyanosis. NEUROLOGIC: Normal speech, normal tone PSYCHIATRIC: Normal affect, normal mood. SKIN: No ulcerations Vitals Vitals Vital Signs Date Time Temp Pulse Resp B/P Pulse Ox O2 Delivery O2 Flow Rate FiO2 07/04/16 10:18 96.8 77 20 96/50 95 Room Air 96.8 Labs Labs Laboratory Tests Test 07/04/16 00:01 07/04/16 01:15 Urine Collection Type Unknown Urine Color Yellow Urine Clarity Clear Urine pH 7.0 Urine Specific [place] 1.025 Urine Protein Negativemg/dL (NEG-TRACE) Urine Glucose (UA) Negativemg/dL (NEG) Urine Ketones (Stick) Negativemg/dL (NEG) Urine Blood Negative (NEG) Urine Nitrite Negative (NEG) Urine Bilirubin Negative (NEG) Urine Urobilinogen Dipstick 0.2mg/dL (0.2 mg/dL) Urine Leukocyte Esterase Negative (NEG) Urine RBC 0/HPF (0-2) Urine WBC 0/HPF (0-4) Urine Squamous Epithelial Cells Few/LPF Urine Amorphous Sediment Present/HPF Urine Bacteria 0/HPF (0-FEW) Urine Mucus Mod/LPF Urine Test Negative (NEG) White Blood Count 13.2x10^3/uL (4.0-11.0) Red Blood Count 4.14x10^6/uL (3.50-5.40) Hemoglobin 13.3g/dL (12.0-15.5) Hematocrit 39.6% (36.0-47.0) Mean Corpuscular Volume 96fL (79-100) Mean Corpuscular Hemoglobin 32pg (25-35) Mean Corpuscular Hemoglobin Concent 34g/dL (31-37) Red Cell Distribution Width 13.8% (11.5-14.5) Platelet Count 326x10^3/uL (140-400) Neutrophils (%) (Auto) 63% (31-73) Lymphocytes (%) (Auto) 26% (24-48) Monocytes (%) (Auto) 6% (0-9) Eosinophils (%) (Auto) 4% (0-3) Basophils (%) (Auto) 1% (0-3) Neutrophils # (Auto) 8.2x10^3uL (1.8-7.7) Lymphocytes # (Auto) 3.4x10^3/uL (1.0-4.8) Monocytes # (Auto) 0.8x10^3/uL (0.0-1.1) Eosinophils # (Auto) 0.5x10^3/uL (0.0-0.7) Basophils # (Auto) 0.2x10^3/uL (0.0-0.2) Sodium Level 140mmol/L (136-145) Potassium Level 4.2mmol/L (3.5-5.1) Chloride Level 103mmol/L (98-107) Carbon Dioxide Level 27mmol/L (21-32) Anion Gap 10 (6-14) Blood Urea Nitrogen 14mg/dL (7-20) Creatinine 0.9mg/dL (0.6-1.0) Estimated GFR (Cockcroft-Gault) 74.6 BUN/Creatinine Ratio 16 (6-20) Glucose Level 82mg/dL (70-99) Calcium Level 9.1mg/dL (8.5-10.1) Total Bilirubin 0.3mg/dL (0.2-1.0) Aspartate Amino Transf (AST/SGOT) 23U/L (15-37) Alanine Aminotransferase (ALT/SGPT) 35U/L (14-59) Alkaline Phosphatase 59U/L (46-116) Total Protein 7.3g/dL (6.4-8.2) Albumin 3.6g/dL (3.4-5.0) Albumin/Globulin Ratio 1.0 (1.0-1.7) Laboratory Tests Test 07/04/16 00:01 07/04/16 01:15 Urine Collection Type Unknown Urine Color Yellow Urine Clarity Clear Urine pH 7.0 Urine Specific [place] 1.025 Urine Protein Negativemg/dL (NEG-TRACE) Urine Glucose (UA) Negativemg/dL (NEG) Urine Ketones (Stick) Negativemg/dL (NEG) Urine Blood Negative (NEG) Urine Nitrite Negative (NEG) Urine Bilirubin Negative (NEG) Urine Urobilinogen Dipstick 0.2mg/dL (0.2 mg/dL) Urine Leukocyte Esterase Negative (NEG) Urine RBC 0/HPF (0-2) Urine WBC 0/HPF (0-4) Urine Squamous Epithelial Cells Few/LPF Urine Amorphous Sediment Present/HPF Urine Bacteria 0/HPF (0-FEW) Urine Mucus Mod/LPF Urine Test Negative (NEG) White Blood Count 13.2x10^3/uL (4.0-11.0) Red Blood Count 4.14x10^6/uL (3.50-5.40) Hemoglobin 13.3g/dL (12.0-15.5) Hematocrit 39.6% (36.0-47.0) Mean Corpuscular Volume 96fL (79-100) Mean Corpuscular Hemoglobin 32pg (25-35) Mean Corpuscular Hemoglobin Concent 34g/dL (31-37) Red Cell Distribution Width 13.8% (11.5-14.5) Platelet Count 326x10^3/uL (140-400) Neutrophils (%) (Auto) 63% (31-73) Lymphocytes (%) (Auto) 26% (24-48) Monocytes (%) (Auto) 6% (0-9) Eosinophils (%) (Auto) 4% (0-3) Basophils (%) (Auto) 1% (0-3) Neutrophils # (Auto) 8.2x10^3uL (1.8-7.7) Lymphocytes # (Auto) 3.4x10^3/uL (1.0-4.8) Monocytes # (Auto) 0.8x10^3/uL (0.0-1.1) Eosinophils # (Auto) 0.5x10^3/uL (0.0-0.7) Basophils # (Auto) 0.2x10^3/uL (0.0-0.2) Sodium Level 140mmol/L (136-145) Potassium Level 4.2mmol/L (3.5-5.1) Chloride Level 103mmol/L (98-107) Carbon Dioxide Level 27mmol/L (21-32) Anion Gap 10 (6-14) Blood Urea Nitrogen 14mg/dL (7-20) Creatinine 0.9mg/dL (0.6-1.0) Estimated GFR (Cockcroft-Gault) 74.6 BUN/Creatinine Ratio 16 (6-20) Glucose Level 82mg/dL (70-99) Calcium Level 9.1mg/dL (8.5-10.1) Total Bilirubin 0.3mg/dL (0.2-1.0) Aspartate Amino Transf (AST/SGOT) 23U/L (15-37) Alanine Aminotransferase (ALT/SGPT) 35U/L (14-59) Alkaline Phosphatase 59U/L (46-116) Total Protein 7.3g/dL (6.4-8.2) Albumin 3.6g/dL (3.4-5.0) Albumin/Globulin Ratio 1.0 (1.0-1.7) VTE Prophylaxis Ordered VTE Prophylaxis Devices: Yes VTE Pharmacological Prophylaxi: No BILL RUFF MD Jul 04, 2016 10:45
[2016-07-04] MEDS ORDERED: GLYCOPYRROLATE 1 MG/5 ML VIAL. ONE (10:52)
[2016-07-04] MEDS ORDERED: ESMOLOL 100 MG/10 ML VIAL. IV ONE (11:19)
[2016-07-04] MEDS ORDERED: NEOSTIGMINE METHYLSULFATE 5 MG/5 ML SYRINGE. ONE (11:46)
--- NOTE | 2016-07-04 11:46 | RAD ---
C-arm fluoroscopy with fluoroscopic spot views History: Laparoscopic cholecystectomy. Intraoperative cholangiogram. Total fluoroscopic time: 24.3 seconds. Total fluoroscopic spot views: 1. IMPRESSION: This fluoroscopic spot view demonstrates opacification of the common bile duct with free flow of contrast from the common bile duct into the duodenum. No stricture or stone is seen within the common bile duct.
--- NOTE | 2016-07-04 12:05 | PDOC4 ---
Operative Note Operative Note Operative Note: Preoperative Diagnosis: Acute cholecystitis Postoperative Diagnosis: Same Procedure: Laparoscopic cholecystectomy with intraoperative cholangiogram Surgeons: Jimbo Anesthesia: Gen. Estimated Blood Loss: 10 mL Specimen: Gallbladder to pathology Drains: None Complications: None Indications: The patient is a 30 year old female who was admitted to the hospital with right upper quadrant pain. Her evaluation was consistent with cholecystitis. Surgical treatment was offered by means of a laparoscopic cholecystectomy. The risks of surgery were discussed which include bleeding, infection, bile duct injury, bile leak, pain, the potential for additional surgeries or procedures. The patient understands and would like to proceed. Description: The patient was taken to the operating room and laid supine on the operating table. General anesthesia was performed. The abdomen was prepped with ChloraPrep and draped in a standard surgical fashion. A small infraumbilical incision was made with a scalpel. The Veress needle was then inserted and a pneumoperitoneum was then created. A 5 mm trocar was then inserted and the laparoscope was introduced. In the upper midabdomen a 5 mm trocar was inserted and in the right upper quadrant two 2.3 mm mini lap graspers were inserted. The gallbladder appeared thick walled with edema of the wall consistent with cholecystitis. The gallbladder was retracted cephalad. The cystic duct was dissected free from surrounding tissues. One clip was placed on the duct near the gallbladder junction. An opening was made in the duct and a cholangiocatheter placed within and secured with a clip. Using contrast dye and fluoroscopy an intraoperative cholangiogram was attempted. I had some difficulty due to an apparent cystic duct spiral valve. There was some contrast extravasation and technical difficulties due to the valve. I made a second ductotomy just distal to the original and attempted to place the cholangiocatheter. Again there was some resistance likely due to a cystic valves. After repeatedly trying, I elected to forego any further attempts. The existing cholangiogram did not show any distal CBD filling defects and contrast did pass readily into the duodenum. The anatomy was clear and the cystic duct was clearly seen circumferentially entering the gallbladder. The clip and catheter were then withdrawn. Two clips were placed on the cystic duct and it was divided. The cystic artery was then identified, dissected free, doubly clipped and divided as well. The gallbladder was then mobilized away from the liver with cautery. The umbilical 5 millimeter trocar was exchanged for an 11 millimeter trocar. The gallbladder was then placed in an endoscopic bag and extracted at the umbilical trocar site. The fascia there was closed with an 0 Vicryl suture. All blood and irrigation fluid was suctioned and hemostasis was good. The remaining ports were removed and the pneumoperitoneum was relieved. The skin incisions were injected with half percent Marcaine with epinephrine, and all were closed using 4-0 Monocryl suture. Steri-Strips and dressings were then applied. The patient tolerated the procedure well and was sent to the recovery room in stable condition. At the end of the case all counts were correct. ELIAS FLOREZ MD Jul 04, 2016 12:05
[2016-07-05] MEDS: OXYCODONE/APAP 5/325 TABLET. PO PRN ×4 (02:29→12:52)
[2016-07-05 03:59] VITALS: BP 105/52
[2016-07-05 07:00] VITALS: BP 99/66
[2016-07-05] MEDS ORDERED: IV NORMAL SALINE 500ML BAG 500 ML IV ONE (10:30)
--- NOTE | 2016-07-05 10:31 | PDOC ---
SURGICAL PROGRESS NOTE Subjective tolerating diet incisional pain Vital Signs Vital Signs Date Time Temp Pulse Resp B/P Pulse Ox O2 Delivery O2 Flow Rate FiO2 07/05/16 08:07 Room Air 07/05/16 07:00 98.4 82 22 99/66 98 98.4 07/04/16 18:17 2.0 I&O Intake and Output 07/05/16 07:00 Intake Total 2300 ml Output Total 2660 ml Balance -360 ml Intake Oral 700 ml IV Total 1600 ml Output Urine Total 2650 ml Estimated Blood Loss 10 ml General: Alert, Oriented X3, Cooperative, No acute distress Abdomen: Soft, Other (lap sites c/d/i, no erythema, incisional TTP) Labs Laboratory Tests Test 07/04/16 00:01 07/04/16 01:15 Urine Collection Type Unknown Urine Color Yellow Urine Clarity Clear Urine pH 7.0 Urine Specific [place] 1.025 Urine Protein Negativemg/dL (NEG-TRACE) Urine Glucose (UA) Negativemg/dL (NEG) Urine Ketones (Stick) Negativemg/dL (NEG) Urine Blood Negative (NEG) Urine Nitrite Negative (NEG) Urine Bilirubin Negative (NEG) Urine Urobilinogen Dipstick 0.2mg/dL (0.2 mg/dL) Urine Leukocyte Esterase Negative (NEG) Urine RBC 0/HPF (0-2) Urine WBC 0/HPF (0-4) Urine Squamous Epithelial Cells Few/LPF Urine Amorphous Sediment Present/HPF Urine Bacteria 0/HPF (0-FEW) Urine Mucus Mod/LPF Urine Test Negative (NEG) White Blood Count 13.2x10^3/uL (4.0-11.0) Red Blood Count 4.14x10^6/uL (3.50-5.40) Hemoglobin 13.3g/dL (12.0-15.5) Hematocrit 39.6% (36.0-47.0) Mean Corpuscular Volume 96fL (79-100) Mean Corpuscular Hemoglobin 32pg (25-35) Mean Corpuscular Hemoglobin Concent 34g/dL (31-37) Red Cell Distribution Width 13.8% (11.5-14.5) Platelet Count 326x10^3/uL (140-400) Neutrophils (%) (Auto) 63% (31-73) Lymphocytes (%) (Auto) 26% (24-48) Monocytes (%) (Auto) 6% (0-9) Eosinophils (%) (Auto) 4% (0-3) Basophils (%) (Auto) 1% (0-3) Neutrophils # (Auto) 8.2x10^3uL (1.8-7.7) Lymphocytes # (Auto) 3.4x10^3/uL (1.0-4.8) Monocytes # (Auto) 0.8x10^3/uL (0.0-1.1) Eosinophils # (Auto) 0.5x10^3/uL (0.0-0.7) Basophils # (Auto) 0.2x10^3/uL (0.0-0.2) Sodium Level 140mmol/L (136-145) Potassium Level 4.2mmol/L (3.5-5.1) Chloride Level 103mmol/L (98-107) Carbon Dioxide Level 27mmol/L (21-32) Anion Gap 10 (6-14) Blood Urea Nitrogen 14mg/dL (7-20) Creatinine 0.9mg/dL (0.6-1.0) Estimated GFR (Cockcroft-Gault) 74.6 BUN/Creatinine Ratio 16 (6-20) Glucose Level 82mg/dL (70-99) Calcium Level 9.1mg/dL (8.5-10.1) Total Bilirubin 0.3mg/dL (0.2-1.0) Aspartate Amino Transf (AST/SGOT) 23U/L (15-37) Alanine Aminotransferase (ALT/SGPT) 35U/L (14-59) Alkaline Phosphatase 59U/L (46-116) Total Protein 7.3g/dL (6.4-8.2) Albumin 3.6g/dL (3.4-5.0) Albumin/Globulin Ratio 1.0 (1.0-1.7) Problem List Problems Medical Problems: (1) Cholelithiasis Status: Acute Assessment/Plan s/p lap bhupinder ok to or home FU 2 weeks Problems: DIANE ARIAS [employer] Jul 05, 2016 10:31
[2016-07-05] MEDS ORDERED: IV NORMAL SALINE 1000ML BAG 1,000 ML IV ONE (10:45)
--- NOTE | 2016-07-05 11:03 | DS ---
DATE OF DISCHARGE: 07/05/2016 DISCHARGE DIAGNOSIS: Acute cholecystitis status post laparoscopic cholecystectomy by Dr. Choi. BRIEF HOSPITAL COURSE: A 30-year-old female patient admitted to the hospital for acute abdominal pain, diagnosed with cholelithiasis and cholecystitis. She had an emergent laparoscopic cholecystectomy by Dr. Choi. Post-surgery, the patient did tolerate the procedure very well, able to tolerate diet well and deemed clinically stable enough to go home today and she needs follow up with Dr. Choi in 2 weeks. DISCHARGE DISPOSITION: Home. DISCHARGE CONDITION: Stable. DISCHARGE MEDICATIONS: Percocet 5/325 q. 4 hours as needed for pain. DISCHARGE EXAMINATION: GENERAL: Alert, oriented x 3. HEART: S1, S2 present. LUNGS: Anterior chest clear. ABDOMEN: Soft, nontender, no organomegaly. EXTREMITIES: No edema. Total time spent for discharge is 31 minutes for patient education, counseling and coordination of care. BILL RUFF MD DR: BARBARA/grace JOB#: [id number] / [id number]
[2016-07-05 11:52] VITALS: BP 102/55
[2016-07-05 12:40] VITALS: BP 106/70
[2016-07-05] MEDS ORDERED: OXYC-323 PO (13:04)
== END 2016-07-05 13:30 | disposition home or self-care (01) | DRG 418 ==
LOC: ER 23:26 → 5 SOUTH 07-04 00:56
PROVIDERS: ADMIT Internal Medicine; ATTEND Internal Medicine
PROC: BF121ZZ Fluoroscopy of Gallbladder using Low Osmolar Contrast (ICD-10-PCS; 2016-07-04)
PROC: 0FT44ZZ Resection of Gallbladder, Percutaneous Endoscopic Approach (ICD-10-PCS; principal; 2016-07-04 10:30)
DX: K80.00 Calculus of gallbladder with acute cholecystitis without obstruction (principal); Z68.41 Body mass index [BMI] 40.0-44.9, adult; F17.210 Nicotine dependence, cigarettes, uncomplicated; E66.9 Obesity, unspecified; Z98.891 History of uterine scar from previous surgery
CPT/HCPCS: 36415; 74176; 74300; 80053; 81001; 81025; 85027; 96374; 96375; C1769; C1782; C9113; J0690; J1100; J1885; J2250; J2405; J2704; J2710; J3010; J3490; J7030; Q9967; 99285-25